=== PATIENT | female | born 2000 | race American Indian/Alaskan Native ===

== ENCOUNTER 2021-12-22 03:57 | Outpatient (CLI) | payer OTHER ==
[2021-12-22 06:01] LABS: Alanine Aminotransferase 7 units/L (7-56); Hematocrit 29.3 % (30.3-42.9); Hemoglobin 9.3 gm/dl (10.1-14.3); Mean Corpuscular HGB Conc 32 % (30-34); Mean Corpuscular Volume 75 fl (79-97); Platelet Count 220 K/mm3 (140-440); Red Blood Count 3.91 M/mm3 (3.65-5.03); Uric Acid 3.1 mg/dL (3.5-7.6)
[2021-12-22 06:03] LABS: Red Cell Distribution Width 28.6 % (13.2-15.2)
[2021-12-22 06:26] VITALS: BP 138/84
[2021-12-22 06:43] LABS: Bilirubin,Urine NEG (Negative); Blood,Urine MOD (Negative); Color,Urine Yellow (Yellow); Urobilinogen,Urine < 2.0 mg/dL (<2.0)
[2021-12-22 06:49] LABS: Mucus,Urine FEW /HPF
--- NOTE | 2021-12-22 06:55 | Ultrasound Report ---
US OB BPP wo non-stress, US OB limited INDICATION / CLINICAL INFORMATION: well being COMPARISON: None available. TECHNIQUE: Using a transcutaneous probe, multiple grayscale, color Doppler, and spectral Doppler imag es of the uterus and fetus were captured and stored. In addition, biophysical profile was perfo rmed with scoring of biophysical variables including respiration, motion, posture a nd tone, and qualitative amniotic fluid volume. FINDINGS: Clinical estimated gestational age based on last menstrual period of 03/16/2021 is 40 weeks 1 day. Single cephalic fetus is present with diminished amniotic fluid index measuring 6.7 cm. heart r ate is 142 bpm. BREATHING MOVEMENT = 2 GROSS BODY MOVEMENT = 2 TONE = 2 QUALITATIVE AMNIOTIC FLUID VOLUME = 2 TOTAL BIOPHYSICAL SCORE = 8/8 IMPRESSION: 1. Single living fetus, biophysical profile score 8/8, normal. 2. Oligohydramnios. Signer Name: Phong Newsome II, MD Signed: 12/22/2021 6:51 AM Workstation Name: [id number]
[2021-12-22 08:55] LABS: Basophils % (Manual) 0 % (0.0-1.8); Eosinophils % (Manual) 0 % (0.0-4.3); Total Cells Counted 100
[2021-12-22 08:56] LABS: Anisocytosis 3+; Hypochromasia 1+; Platelet Estimate Consistent w Auto; Target Cells Few
== END 2021-12-22 07:32 | disposition left against medical advice (07) ==
LOC: TRG 03:57 → APU 03:59 → TRG 07:32
PROVIDERS: ATTEND Obstetrics & Gynecology
DX: Z34.93 Encounter for supervision of normal pregnancy, unspecified, third trimester (principal); Z3A.40 40 weeks gestation of pregnancy
CPT/HCPCS: 36415; 76815; 76819; 81001; 82565; 83615; 84112; 84450; 84460; 84550; 85007; 85025; 86592; 87086